=== PATIENT | female | born 1950 | race Caucasian/White ===

== ENCOUNTER 2021-05-09 10:47 | Emergency (ER) | payer MEDICARE ==
[~2021-05-09] VITALS: Ht 167.6 cm; Wt 98.4 kg
[2021-05-09] MEDS ORDERED: SORINE 80 MG TA80 MG (10:52)
[2021-05-09] MEDS ORDERED: JANTOVEN3 MG PO (10:52)
[2021-05-09 11:05] LABS: ABSOLUTE EOSINOPHILS 0.1 thou/uL (0.0-0.7); ABSOLUTE LYMPHOCYTES 1.5 thou/uL (0.8-5.3); ABSOLUTE MONOCYTES 0.6 thou/uL (0.0-1.2); ABSOLUTE NEUTROPHILS 4.6 thou/uL (1.6-8.1); BASOPHILS 0.7 %; EOSINOPHILS 0.9 %; HEMATOCRIT 42.9 % (37.0-47.0); HEMOGLOBIN 14.4 gm/dL (12.0-15.0); LYMPHOCYTES 21.3 %; MCHC 33.7 g/dL (28.0-37.0); MCV 95.1 fL (80.0-100.0); MONOCYTES 9.3 %; MPV 9.2 fl. (7.2-11.1); NUCLEATED RBCS 0 /100WBC; PLATELET COUNT* 229 thou/uL (150-400); POLYS 67.8 %; RBC 4.51 mil/uL (4.20-5.00); RDW-CV 13.7 % (10.5-14.5); WBC 6.8 thou/uL (4.0-11.0)
[2021-05-09 11:26] LABS: CALCIUM 8.7 mg/dL (8.5-10.1); CREATININE 0.8 mg/dL (0.6-1.3); POTASSIUM 4.6 mmol/L (3.5-5.1)
[2021-05-09 11:35] VITALS: BP 153/99
[2021-05-09 11:40] LABS: ALBUMIN 3.5 g/dL (3.4-5.0); CK-MB MASS 22.4 ng/mL (<0.5-3.6); TOTAL BILIRUBIN 0.5 mg/dL (<0.1-1.0); TOTAL PROTEIN 7.6 g/dL (6.4-8.2)
[2021-05-09 11:41] LABS: INR 2.3; PROTIME 22.8 Seconds (9.20-11.50)
--- NOTE | 2021-05-09 12:29 | EKG ---
[place] [address] ELECTROCARDIOGRAM REPORT Name: IVETH COYLE Room: [facility]#: [id number] Admission: 05/09/21 Attend Phys: Discharge: 05/09/21 Date of : 48 Date of Service: 05/09/21 1046 Report #: [id number] THIS REPORT FOR: //name// [facility] ED Test Date: 2021-05-09 Test Time: 10:46:19 Pat Name: IVETH COYLE Department: Room: Gender: [place] [employer]: DS : 1950 Requested By: Shatnanu Pulido Order Number: [id number] MD: Anil Beaver Measurements Intervals [place] Rate: 93 P: [place]: QRS: -24 QRSD: 88 T: 98 QT: 356 QTc: 443 Interpretive Statements Atrial fibrillation Inferior infarct, old Compared to ECG 06/25/2016 11:35:47 Myocardial infarct finding persists Electronically Signed On 05-09-2021 12:29:18 CDT by Anil Beaver [email or web address] <ELECTRONICALLY SIGNED> By: Anil Beaver MD, [facility] 05/09/21 1229 1046 1046 Anil Beaver MD, [facility] /EPI
== END 2021-05-09 11:35 | disposition left against medical advice (07) ==
LOC: M.ERS 10:47
PROVIDERS: Family Medicine
DX: I48.91 Unspecified atrial fibrillation (principal); R79.89 Other specified abnormal findings of blood chemistry; M25.512 Pain in left shoulder; Z79.899 Other long term (current) drug therapy; Z79.01 Long term (current) use of anticoagulants; Z53.29 Procedure and treatment not carried out because of patient's decision for other reasons